=== PATIENT | male | born 1995 | race Caucasian/White ===

== ENCOUNTER 2022-04-05 18:26 | Emergency (ER) | payer SELFPAY ==
[~2022-04-05] VITALS: Ht 172.7 cm; Wt 79.8 kg
[2022-04-05] MEDS ORDERED: OXYC-128 PO (19:17)
--- NOTE | 2022-04-05 19:50 | NUR ---
Dr. Hinson in speaking with the pt for discharge notes.
--- NOTE | 2022-04-05 19:51 | NUR ---
Patient discharged to home in stable condition. Written and verbal after care instructions given. Patient verbalizes understanding of instructions. Stressed follow up or return to ER for worsening s/s.
[2022-04-05 20:01] VITALS: BP 130/70
== END 2022-04-05 20:02 | disposition home or self-care (01) ==
LOC: ER 18:31
DX: M25.462 Effusion, left knee (principal); S89.92XA Unspecified injury of left lower leg, initial encounter; X50.0XXA Overexertion from strenuous movement or load, initial encounter; Y92.89 Other specified places as the place of occurrence of the external cause
CPT/HCPCS: 73560; A4663